=== PATIENT | male | born 1995 | race African-American/Black ===

== ENCOUNTER 2018-08-18 10:21 | Outpatient (CLI) | payer OTHER | END 2018-08-18 10:33 | disposition home or self-care (01) | LOC: LAB 10:21 | DX: E03.8 Other specified hypothyroidism (principal); E78.2 Mixed hyperlipidemia; K90.89 Other intestinal malabsorption; E11.9 Type 2 diabetes mellitus without complications; I10 Essential (primary) hypertension; D50.8 Other iron deficiency anemias; E16.2 Hypoglycemia, unspecified; D51.3 Other dietary vitamin B12 deficiency anemia ==

== ENCOUNTER 2018-08-18 10:49 | Outpatient (CLI) | payer OTHER | END 2018-08-18 10:54 | disposition home or self-care (01) | LOC: SONOGRAMA 10:49 | DX: E16.1 Other hypoglycemia (principal); D51.3 Other dietary vitamin B12 deficiency anemia; R73.01 Impaired fasting glucose ==

== ENCOUNTER → 2018-08-26 11:59 | Outpatient (CLI) | payer OTHER | END | disposition home or self-care (01) | LOC: LAB 11:59 | DX: E03.8 Other specified hypothyroidism (principal); D51.3 Other dietary vitamin B12 deficiency anemia; E16.2 Hypoglycemia, unspecified; D50.8 Other iron deficiency anemias; D51.8 Other vitamin B12 deficiency anemias; I10 Essential (primary) hypertension; E11.9 Type 2 diabetes mellitus without complications; K90.89 Other intestinal malabsorption; E78.2 Mixed hyperlipidemia; R73.09 Other abnormal glucose ==

== ENCOUNTER 2018-10-20 08:49 | Outpatient (CLI) | payer OTHER | END 2018-10-20 08:57 | disposition home or self-care (01) | LOC: LAB 08:49 | DX: D51.3 Other dietary vitamin B12 deficiency anemia (principal); E16.1 Other hypoglycemia; R73.01 Impaired fasting glucose; N39.0 Urinary tract infection, site not specified; D50.8 Other iron deficiency anemias; D51.8 Other vitamin B12 deficiency anemias; I10 Essential (primary) hypertension; E72.12 Methylenetetrahydrofolate reductase deficiency; D68.61 Antiphospholipid syndrome ==

== ENCOUNTER 2019-01-16 11:55 | Outpatient (CLI) | payer OTHER | END 2019-01-16 11:56 | disposition home or self-care (01) | LOC: RAD 11:55 | DX: J45.998 Other asthma (principal); R05 Cough ==

== ENCOUNTER → 2019-02-02 09:11 | Outpatient (CLI) | payer OTHER | END | disposition home or self-care (01) | LOC: LAB 09:11 | DX: E11.9 Type 2 diabetes mellitus without complications (principal); E06.3 Autoimmune thyroiditis ==